=== PATIENT | male | born 1985 | race Caucasian/White ===

== ENCOUNTER 2024-08-31 12:13 | Emergency (ER) | payer OTHER ==
[~2024-08-31] VITALS: Ht 188 cm; Wt 83.9 kg
[~2024-08-31 12:13] MED LIST: PRED5SOL PO
[2024-08-31] MEDS ORDERED: KETO10TA2 PO (15:16)
[2024-08-31 16:16] VITALS: BP 140/94; TEMP 98.2; O2SAT 100
== END 2024-08-31 16:16 | disposition home or self-care (01) ==
LOC: ER 12:13
DX: S09.90XA Unspecified injury of head, initial encounter (principal); M54.2 Cervicalgia; M79.601 Pain in right arm; R11.0 Nausea; R20.2 Paresthesia of skin; Z79.52 Long term (current) use of systemic steroids; Y04.0XXA Assault by unarmed brawl or fight, initial encounter; Y93.89 Activity, other specified; Y92.89 Other specified places as the place of occurrence of the external cause; Y99.0 Civilian activity done for income or pay
CPT/HCPCS: 70450-TC; 72125-TC